=== PATIENT | female | born 1935 | race Two or more races ===

== ENCOUNTER 2018-04-19 09:55 | Outpatient (CLI) | payer OTHER | END 2018-04-19 10:02 | disposition home or self-care (01) | LOC: NUCLEAR 09:55 | DX: I11.9 Hypertensive heart disease without heart failure (principal); I35.9 Nonrheumatic aortic valve disorder, unspecified; R01.1 Cardiac murmur, unspecified ==

== ENCOUNTER 2019-07-30 08:06 | Outpatient (CLI) | payer OTHER | END 2019-07-30 08:14 | disposition home or self-care (01) | LOC: SONOGRAMA 08:06 → MAMO-SONO 08:15 | DX: M05.40 Rheumatoid myopathy with rheumatoid arthritis of unspecified site (principal); I11.9 Hypertensive heart disease without heart failure; I34.8 Other nonrheumatic mitral valve disorders; N18.3 Chronic kidney disease, stage 3 (moderate); I35.8 Other nonrheumatic aortic valve disorders ==

== ENCOUNTER 2020-09-03 10:55 | Outpatient (CLI) | payer OTHER | END 2020-09-03 11:28 | disposition home or self-care (01) | LOC: NUCLEAR 10:55 | PROVIDERS: ATTEND Internal Medicine Cardiovascular Disease | DX: I35.9 Nonrheumatic aortic valve disorder, unspecified (principal); I44.7 Left bundle-branch block, unspecified; I11.9 Hypertensive heart disease without heart failure; I34.8 Other nonrheumatic mitral valve disorders ==

== ENCOUNTER → 2021-01-12 10:01 | Outpatient (CLI) | payer OTHER | END | disposition home or self-care (01) | LOC: NUCLEAR 10:00 | PROVIDERS: ATTEND Internal Medicine Cardiovascular Disease | DX: R09.89 Other specified symptoms and signs involving the circulatory and respiratory systems (principal); I65.21 Occlusion and stenosis of right carotid artery ==

== ENCOUNTER 2021-01-26 14:48 | Outpatient (CLI) | payer OTHER | END 2021-01-26 14:49 | disposition home or self-care (01) | LOC: NUCLEAR 14:48 | PROVIDERS: ATTEND Internal Medicine Cardiovascular Disease | DX: M81.0 Age-related osteoporosis without current pathological fracture (principal) ==

== ENCOUNTER 2021-03-25 07:34 | Outpatient (CLI) | payer OTHER | END 2021-03-25 07:48 | disposition home or self-care (01) | LOC: MAMO-SONO 07:34 | PROVIDERS: ATTEND Internal Medicine Cardiovascular Disease | DX: R70.0 Elevated erythrocyte sedimentation rate (principal); M05.40 Rheumatoid myopathy with rheumatoid arthritis of unspecified site; D64.89 Other specified anemias ==

== ENCOUNTER 2021-07-27 08:00 | Outpatient (CLI) | payer OTHER | END 2021-07-27 08:30 | disposition home or self-care (01) | LOC: PPH VACUNA 08:00 | PROVIDERS: ATTEND Emergency Medicine Pediatric Emergency Medicine | DX: Z23 Encounter for immunization (principal) ==